=== PATIENT | male | born 1950 | race Caucasian/White ===

== ENCOUNTER → 2017-05-10 | Outpatient (CLI) | payer OTHER ==
[2017-05-10 18:18] LABS: URINE APPEARANCE CLEAR (CLEAR); URINE COLOR DK YELLOW; URINE NITRITE NEG (NEG); URINE PH 6.5 (4.5-7.5); UROBILINOGEN NEG (NEG)
[2017-05-10 18:37] LABS: MANUAL MICROSCOPIC REQUIRED? NO; REVIEW REQ? NO; URINE BILIRUBIN NEG (NEG)
== END | disposition home or self-care (01) ==
LOC: C.LABMFLN 12:42
PROVIDERS: ATTEND Family Medicine
DX: R80.9 Proteinuria, unspecified (principal); M54.10 Radiculopathy, site unspecified

== ENCOUNTER → 2017-06-03 | Outpatient (CLI) | payer OTHER ==
[2017-06-03 14:10] LABS: LYME DISEASE AB IGG NEG (NEG); LYME DISEASE AB IGM NEG (NEG)
== END | disposition home or self-care (01) ==
LOC: C.LABMFLN 08:46
PROVIDERS: ATTEND Family Medicine
DX: M79.1 Myalgia (principal)

== ENCOUNTER → 2017-06-04 | Outpatient (CLI) | payer OTHER ==
--- NOTE | 2017-06-04 10:10 | DIAGNOSTIC IMAGING REPORT ---
L HAND MIN 3 VIEWS ROUTINE CLINICAL HISTORY: R80.9 GxhszaitepmV60.0 Elevated sedimentation rateM35.3 Polymyal pain COMPARISON: None. 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 All remaining articular services are unremarkable. There is no evidence for periarticular osteopenia. There are no abnormal soft tissue calcifications. There is no evidence for soft tissue swelling. 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 Otherwise negative study. The above report was generated using voice recognition software. It may contain grammatical, syntax or spelling errors. Electronically signed by: Rubin Quinones M.D. 06/04/2017 10:09 AM Dictated Date/Time: 06/04/2017 10:08 AM
--- NOTE | 2017-06-04 10:11 | DIAGNOSTIC IMAGING REPORT ---
R HAND MIN 3 VIEWS ROUTINE CLINICAL HISTORY: R80.9 BnimlhzenhoG97.0 Elevated sedimentation rateM35.3 polymyalgia COMPARISON: None. DISCUSSION: No acute fractures are visualized. A few tiny erosions are visualized at the level of the distal interphalangeal joints. The bony mineralization appears normal for age. There are mild osteoarthritic type changes present at the level of the distal to phalangeal joints and first carpal metacarpal joint. IMPRESSION: 1. No acute fractures 2. Mild osteoarthritic type changes 3. A few tiny erosions are suspected. Electronically signed by: Niko Ceja M.D. 06/04/2017 10:10 AM Dictated Date/Time: 06/04/2017 10:08 AM
[2017-06-04 10:34] LABS: C-REACTIVE PROTEIN 1.78 mg/dl (0-0.29); RHEUMATOID FACTOR < 10.0 U/mL (0-15); TOTAL IRON BINDING CAPACITY 319 mcg/dl (250-450)
[2017-06-04 12:40] LABS: URINE APPEARANCE CLEAR (CLEAR); URINE BILIRUBIN NEG (NEG); URINE COLOR DK YELLOW; URINE EPITHELIAL CELL AUTO 0-5 /lpf (0-5); URINE NITRITE NEG (NEG); URINE SPECIFIC GRAVITY 1.026 (1.000-1.030); UROBILINOGEN NEG (NEG)
[2017-06-04 12:44] LABS: MANUAL MICROSCOPIC REQUIRED? NO; REVIEW REQ? NO
== END | disposition home or self-care (01) ==
LOC: C.RAD1850 09:25
PROVIDERS: ATTEND Internal Medicine Rheumatology
DX: M35.3 Polymyalgia rheumatica (principal); R70.0 Elevated erythrocyte sedimentation rate; R80.9 Proteinuria, unspecified

== ENCOUNTER → 2017-06-14 | Outpatient (CLI) | payer OTHER | END | disposition home or self-care (01) | LOC: C.LABMFLN 11:14 | PROVIDERS: ATTEND Internal Medicine Rheumatology | DX: M35.3 Polymyalgia rheumatica (principal) ==

== ENCOUNTER → 2017-07-14 | Outpatient (CLI) | payer BC | END | disposition home or self-care (01) | LOC: C.LABMFLN 07:11 | PROVIDERS: ATTEND Internal Medicine Rheumatology | DX: M25.561 Pain in right knee (principal); R80.9 Proteinuria, unspecified; M35.3 Polymyalgia rheumatica; R70.0 Elevated erythrocyte sedimentation rate ==

== ENCOUNTER → 2017-08-03 | Outpatient (CLI) | payer OTHER | END | disposition home or self-care (01) | LOC: C.MAMM 07:38 | PROVIDERS: ATTEND Internal Medicine Rheumatology | DX: M81.8 Other osteoporosis without current pathological fracture (principal); T38.0X5A Adverse effect of glucocorticoids and synthetic analogues, initial encounter; M85.88 Other specified disorders of bone density and structure, other site; M85.852 Other specified disorders of bone density and structure, left thigh; M85.851 Other specified disorders of bone density and structure, right thigh ==

== ENCOUNTER → 2017-08-30 | Outpatient (CLI) | payer OTHER | END | disposition home or self-care (01) | LOC: C.LABMFLN 07:50 | PROVIDERS: ATTEND Family Medicine | DX: M35.3 Polymyalgia rheumatica (principal); M81.8 Other osteoporosis without current pathological fracture; E55.9 Vitamin D deficiency, unspecified; T38.0X5A Adverse effect of glucocorticoids and synthetic analogues, initial encounter ==

== ENCOUNTER → 2017-10-04 | Outpatient (CLI) | payer OTHER | END | disposition home or self-care (01) | LOC: C.LABMFLN 08:05 | PROVIDERS: ATTEND Internal Medicine Rheumatology | DX: M35.3 Polymyalgia rheumatica (principal); M81.8 Other osteoporosis without current pathological fracture; E55.9 Vitamin D deficiency, unspecified ==

== ENCOUNTER → 2017-11-11 | Outpatient (CLI) | payer OTHER | END | disposition home or self-care (01) | LOC: C.LABMFLN 10:26 | PROVIDERS: ATTEND Internal Medicine Rheumatology | DX: Z79.52 Long term (current) use of systemic steroids (principal) ==

== ENCOUNTER → 2018-01-21 | Outpatient (CLI) | payer OTHER | END | disposition home or self-care (01) | LOC: C.LABMFLN 07:11 | PROVIDERS: ATTEND Internal Medicine Rheumatology | DX: M35.3 Polymyalgia rheumatica (principal); E55.9 Vitamin D deficiency, unspecified; Z79.52 Long term (current) use of systemic steroids; E78.00 Pure hypercholesterolemia, unspecified ==